=== PATIENT | male | born 1965 | race Caucasian/White ===

== ENCOUNTER 2016-11-26 15:06 | Inpatient (IN) | payer OTHER ==
[~2016-11-26] VITALS: Ht 177.8 cm; Wt 103.9 kg
[~2016-11-26 15:06] MED LIST: ASPIR 8181 MG PO; CINNAMON500 MG PO; COLACE 100MG C100 MG PO; CRESTOR5 MG; CRESTOR5 MG PO; ESCITALOPRAM OX20 MG PO; FLEXERIL 10 MG10 MG PO; GLUCOPHAGE1000 MG PO; HUMALOG100 UNIT/1 SQ; IBUPROFEN800 MG PO; INVOKANA300 MG PO; LOSARTAN-HCTZ1 EAC2 PO; ONE DAILY FOR1 EAC1 PO; PERCOCET 5-3251 EACH PO; PHENERGAN 12.12.5 M1 PO; TRESIBA SQ; VITAMIN C 500500 MG PO
[2016-11-26 16:00] LABS: HEMOGLOBIN 14.8 gm/dl (14.0-17.5); RED BLOOD COUNT 5.04 M/UL (4.20-5.50); WHITE BLOOD COUNT 8.1 K/UL (4.5-11.0)
[2016-11-26 16:14] LABS: BUN/CREATININE RATIO 20 (0-10)
[2016-11-26] MEDS ORDERED: VITAMIN D250000 UNIT PO (22:22)
[2016-11-26] MEDS ORDERED: ZANAFLEX 4 MG TA4 MG PO (22:24)
[2016-11-26] MEDS ORDERED: LOSARTAN-HCTZ1 EAC1 PO (22:24)
[2016-11-26] MEDS ORDERED: BYDUREON P2 MG/0.65 SQ (22:25)
[2016-11-26] MEDS ORDERED: IBUPROFEN800 MG PO (22:25)
[2016-11-26] MEDS ORDERED: BUSPAR 5MG TABLE5 MG PO (22:25)
[2016-11-26] MEDS ORDERED: TESTOSTERON100 MG/ML IM (22:27)
[2016-11-27 05:35] LABS: HEMOGLOBIN 14.1 gm/dl (14.0-17.5); RED BLOOD COUNT 4.82 M/UL (4.20-5.50); WHITE BLOOD COUNT 6.7 K/UL (4.5-11.0)
[2016-11-27 06:02] LABS: BUN/CREATININE RATIO 25 (0-10)
[2016-11-28 05:47] LABS: RED BLOOD COUNT 4.84 M/UL (4.20-5.50); WHITE BLOOD COUNT 6.2 K/UL (4.5-11.0)
[2016-11-28 06:00] LABS: BUN/CREATININE RATIO 21 (0-10)
--- NOTE | 2016-11-29 15:19 | NUR ---
1515 PT TO MRI VIA .
[2016-11-30 06:20] LABS: BUN/CREATININE RATIO 19 (0-10)
[2016-12-01 07:15] LABS: HEMOGLOBIN 14.3 gm/dl (14.0-17.5); RED BLOOD COUNT 4.99 M/UL (4.20-5.50); WHITE BLOOD COUNT 6.8 K/UL (4.5-11.0)
[2016-12-01 07:35] LABS: BUN/CREATININE RATIO 22 (0-10)
[2016-12-02 07:03] LABS: HEMOGLOBIN 13.2 gm/dl (14.0-17.5); RED BLOOD COUNT 4.57 M/UL (4.20-5.50)
[2016-12-02 07:28] LABS: WHITE BLOOD COUNT 10.4 K/UL (4.5-11.0)
[2016-12-02 16:30] LABS: HEMOGLOBIN 13.4 gm/dl (14.0-17.5); RED BLOOD COUNT 4.57 M/UL (4.20-5.50); WHITE BLOOD COUNT 10.6 K/UL (4.5-11.0)
[2016-12-03 05:07] LABS: HEMOGLOBIN 12.7 gm/dl (14.0-17.5); RED BLOOD COUNT 4.39 M/UL (4.20-5.50); WHITE BLOOD COUNT 9.1 K/UL (4.5-11.0)
[2016-12-04 05:36] LABS: RED BLOOD COUNT 4.17 M/UL (4.20-5.50); WHITE BLOOD COUNT 9.1 K/UL (4.5-11.0)
[2016-12-05 04:42] LABS: HEMOGLOBIN 12.2 gm/dl (14.0-17.5); RED BLOOD COUNT 4.23 M/UL (4.20-5.50); WHITE BLOOD COUNT 9.2 K/UL (4.5-11.0)
[2016-12-05] MEDS ORDERED: CRESTOR10 MG PO (19:57)
[2016-12-05] MEDS ORDERED: LEXAPRO20 MG PO (19:58)
[2016-12-05] MEDS ORDERED: VENTOLIN HFA 66.7 GM INH (19:59)
[2016-12-06 04:46] LABS: RED BLOOD COUNT 4.2 M/UL (4.20-5.50); WHITE BLOOD COUNT 7.7 K/UL (4.5-11.0)
[2016-12-07 05:34] LABS: HEMOGLOBIN 12.3 gm/dl (14.0-17.5); RED BLOOD COUNT 4.26 M/UL (4.20-5.50); WHITE BLOOD COUNT 8.4 K/UL (4.5-11.0)
[2016-12-08 06:15] LABS: HEMOGLOBIN 11.6 gm/dl (14.0-17.5); RED BLOOD COUNT 4.03 M/UL (4.20-5.50); WHITE BLOOD COUNT 6.9 K/UL (4.5-11.0)
[2016-12-10 04:20] LABS: HEMOGLOBIN 10.2 gm/dl (14.0-17.5)
[2016-12-10 04:22] LABS: RED BLOOD COUNT 3.58 M/UL (4.20-5.50); WHITE BLOOD COUNT 9.8 K/UL (4.5-11.0)
[2016-12-10] MEDS ORDERED: VALIUM 5 MG TAB5 MG PO (19:38)
[2016-12-10] MEDS ORDERED: SYMBICORT 16010.2 GM INH (19:40)
[2016-12-12 04:53] LABS: HEMOGLOBIN 9.8 gm/dl (14.0-17.5); RED BLOOD COUNT 3.47 M/UL (4.20-5.50)
[2016-12-12 04:55] LABS: WHITE BLOOD COUNT 7.2 K/UL (4.5-11.0)
[2016-12-13 05:58] LABS: HEMOGLOBIN 10.6 gm/dl (14.0-17.5); RED BLOOD COUNT 3.73 M/UL (4.20-5.50)
[2016-12-13 06:19] LABS: BUN/CREATININE RATIO 5 (0-10)
[2016-12-13 09:52] LABS: URINE CREATININE 60.7 mg/dL
[2016-12-13] MEDS ORDERED: TOPROL XL 25 MG25 MG PO (10:24)
[2016-12-13] MEDS ORDERED: LEVEMIR 10100 UNITS/ SC (18:57)
[2016-12-13] MEDS ORDERED: NORVASC 5 MG TAB5 MG PO ×2 (18:58→21:49)
[2016-12-13] MEDS ORDERED: CATAPRES0.3 MG PO (18:59)
[2016-12-13] MEDS ORDERED: VITAMIN D250000 UNIT PO (19:01)
[2016-12-13] MEDS ORDERED: NEPHROCAPS SOFTG1 MG PO ×2 (19:01→21:48)
[2016-12-13] MEDS ORDERED: NORCO 5-325 TA1 EACH PO (21:47)
[2016-12-13] MEDS ORDERED: TOPROL XL100 MG PO (21:47)
[2016-12-13] MEDS ORDERED: CLONIDINE HCL0.3 MG PO (21:48)
[2016-12-13] MEDS ORDERED: LEVEMIR100 UNIT/1 SQ (21:49)
[2016-12-13] MEDS ORDERED: VANCOMYCIN IV750 MG IM (21:57)
[2016-12-13] MEDS ORDERED: MULTIVITAMINS1 EAC1 PO (21:59)
== END 2016-12-13 23:00 | disposition home or self-care (01) | DRG 492 ==
LOC: ER1 15:06 → M/S 20:15 → PROG CARE 20:15 → ZEROF 20:15 → M/S 21:00 → PROG CARE 12-09 17:46 → M/S 12-12 14:14
PROVIDERS: Internal Medicine; Internal Medicine Infectious Disease; Internal Medicine Nephrology; Nurse Practitioner Family; Orthopaedic Surgery; Physician Assistant Medical; ADMIT Internal Medicine
PROC: 0PPF04Z Removal of Internal Fixation Device from Right Humeral Shaft, Open Approach (ICD-10-PCS; principal; 2016-12-01 12:15)
PROC: 3E01329 Introduction of Other Anti-infective into Subcutaneous Tissue, Percutaneous Approach (ICD-10-PCS; principal; 2016-12-01 12:15)
PROC: 0X980ZZ Drainage of Right Upper Arm, Open Approach (ICD-10-PCS; principal; 2016-12-01 12:15)
PROC: 0PC Upper Bones, Extirpation (ICD-10-PCS; principal; 2016-12-01 12:15)
PROC: 5A1D60Z (ICD-10-PCS; 2016-12-05)
PROC: 05HY33Z Insertion of Infusion Device into Upper Vein, Percutaneous Approach (ICD-10-PCS; 2016-12-05)
PROC: 05HM33Z Insertion of Infusion Device into Right Internal Jugular Vein, Percutaneous Approach (ICD-10-PCS; 2016-12-09)
DX: T84.69XA Infection and inflammatory reaction due to internal fixation device of other site, initial encounter (principal); N17.0 Acute kidney failure with tubular necrosis; L02.413 Cutaneous abscess of right upper limb; M86.8X2 Other osteomyelitis, upper arm; L76.32 Postprocedural hematoma of skin and subcutaneous tissue following other procedure; E87.2 Acidosis; N39.0 Urinary tract infection, site not specified; K92.0 Hematemesis; M86.9 Osteomyelitis, unspecified; I10 Essential (primary) hypertension; R80.9 Proteinuria, unspecified; T40.605A Adverse effect of unspecified narcotics, initial encounter; N14.2 Nephropathy induced by unspecified drug, medicament or biological substance; Z88.6 Allergy status to analgesic agent; R22.1 Localized swelling, mass and lump, neck; I95.89 Other hypotension; Y83.8 Other surgical procedures as the cause of abnormal reaction of the patient, or of later complication, without mention of misadventure at the time of the procedure; E11.69 Type 2 diabetes mellitus with other specified complication; Z79.4 Long term (current) use of insulin; Z79.2 Long term (current) use of antibiotics
CPT/HCPCS: 36415; 71010; 73060; 73220; 74000; 76000; 76536; 77001; 80048; 80053; 80074; 80202; 81001; 82550; 82570; 82575; 82607; 82803; 82962; 83516; 83540; 83550; 83605; 83735; 83930; 83935; 84100; 84133; 84156; 84300; 84550; 85025; 85027; 85610; 85730; 86039; 86060; 86140; 86160; 86162; 86225; 86334; 87015; 87040; 87070; 87075; 87086; 87116; 87205; 89050; 90935; 90937; 94640; 96365; 97116; 97535; 99284; A9577; C1713; C1752; C1769; J0360; J0690; J0696; J1200; J1644; J1650; J2020; J2250; J2270; J2405; J2543; J2550; J2765; J3010; J3260; J3370; J7030; J7050; J7070; J7120

== ENCOUNTER → 2017-01-10 | Outpatient (CLI) | payer OTHER ==
[~2017-01-10] MED LIST changes: +BUSPAR 5MG TABLE5 MG PO; +BYDUREON P2 MG/0.65 SQ; +CATAPRES0.3 MG PO; +CLONIDINE HCL0.3 MG PO; +CRESTOR10 MG PO; +LEVEMIR 10100 UNITS/ SC; +LEVEMIR100 UNIT/1 SQ; +LEXAPRO20 MG PO; +LOSARTAN-HCTZ1 EAC1 PO; +MULTIVITAMINS1 EAC1 PO; +NEPHROCAPS SOFTG1 MG PO; +NORCO 5-325 TA1 EACH PO; +NORVASC 5 MG TAB5 MG PO; +SYMBICORT 16010.2 GM INH; +TESTOSTERON100 MG/ML IM; +TOPROL XL 25 MG25 MG PO; +TOPROL XL100 MG PO; +VALIUM 5 MG TAB5 MG PO; +VANCOMYCIN IV750 MG IM; +VENTOLIN HFA 66.7 GM INH; +VITAMIN D250000 UNIT PO; +ZANAFLEX 4 MG TA4 MG PO
[2017-01-10 13:20] LABS: HEMOGLOBIN 10.3 gm/dl (14.0-17.5); RED BLOOD COUNT 3.62 M/UL (4.20-5.50); WHITE BLOOD COUNT 7.1 K/UL (4.5-11.0)
[2017-01-10 13:42] LABS: BUN/CREATININE RATIO 21 (0-10)
== END ==
LOC: CT 12-16 08:00 → OPSV 12:30
PROVIDERS: Internal Medicine Infectious Disease
DX: M86.121 Other acute osteomyelitis, right humerus (principal); B95.62 Methicillin resistant Staphylococcus aureus infection as the cause of diseases classified elsewhere
CPT/HCPCS: 36415; 80053; 85025; 86140; G0463